=== PATIENT | female | born 1960 | race Asian ===

== ENCOUNTER → 2018-01-13 17:14 | Outpatient (CLI) | payer OTHER, SELFPAY ==
--- NOTE | 2018-01-13 17:26 | DI.RAD.S_ITS ---
PROCEDURE: XR CHEST 2V INDICATIONS: left apical mass TECHNIQUE: 2 views of the chest were acquired. COMPARISON: [facility], , CHEST 2 VIEW, 08/24/2011, 16:45. FINDINGS: Surgical changes and devices: None. Lungs and pleura: No pleural effusions or pneumothorax. Chronic appearing scarring and pleural thickening in left apex is again seen. No focal infiltrate. Mediastinum: Mediastinal contours are normal. Heart size is normal. Bones and chest wall: No suspicious bony abnormalities. Soft tissues appear unremarkable. IMPRESSION: No acute cardiopulmonary bulge. No significant changes from previous study. Stable-appearing chronic changes in left apex and medial aspect of left upper lobe. Dictated by: Carlos Syed M.D. on 01/14/2018 at 11:05 Approved by: Carlos Syed M.D. on 01/14/2018 at 11:10
== END ==
PROVIDERS: PCP Family Medicine; Visit Provider Family Medicine
DX: R91.8 Other nonspecific abnormal finding of lung field (principal)
CPT/HCPCS: 71046

== ENCOUNTER → 2018-01-18 17:09 | Outpatient (CLI) | payer OTHER, SELFPAY ==
[2018-01-18 17:34] LABS: Add Manual Diff / Slide Review NO; Basophils Percent Auto 0.8 % (0-2); Eosinophils Percent Auto 1.7 % (2-4); Hematocrit 41.2 % (36-46); Hemoglobin 13.7 g/dL (12.0-16.0); Lymphocytes Percent Auto 36.1 % (25-40); Mean Corpuscular HGB Conc 33.3 % (30-36); Mean Corpuscular Volume 93.3 fL (80-100); Monocytes Percent Auto 8.7 % (3-14); Neutrophils Absolute Auto 3300 /uL (3000-5900); Neutrophils Percent Auto 52.7 % (50-75); Platelet Count 301 X10^3/uL (150-400); Red Blood Cell Count 4.42 X10^6/uL (4.0-5.2); Red Cell Distribution Width 12.1 % (11.6-14.8); White Blood Cell Count 6.2 X10^3/uL (4.5-11.0)
[2018-01-18 18:02] LABS: Alanine Aminotransferase 25 IU/L (9-52); Albumin 4.6 g/dL (3.5-5.0); Albumin Globulin Ratio 1.4 (1.0-2.8); Alkaline Phosphatase 37 U/L (38-126); Aspartate Aminotransferase 21 IU/L (14-36); Bilirubin Total 0.5 mg/dL (0.2-1.3); Blood Urea Nitrogen 18 mg/dL (7-17); Calcium 8.9 mg/dL (8.4-10.2); Carbon Dioxide 32 mmol/L (22-32); Chloride 103 mmol/L (98-107); Estimated Glomerular Filt Rate > 60.0 mL/min (>60); Globulin 3.2 g/dL (1.7-4.1); Glucose 99 mg/dL (80-110); HEMOLYSIS 18 (0-50); Sodium 145 mmol/L (137-145); Total Protein 7.8 g/dL (6.3-8.2)
[2018-01-18 18:32] LABS: Thyroid Stimulating Hormone 2.46 uIU/mL (0.47-4.68)
== END ==
PROVIDERS: PCP Family Medicine; Visit Provider Family Medicine
DX: E87.2 Acidosis (principal)
CPT/HCPCS: 36415; 80053; 84443; 85025

== ENCOUNTER → 2018-04-13 08:47 | Outpatient (CLI) | payer OTHER, SELFPAY ==
[2018-04-13 09:59] LABS: Alanine Aminotransferase 31 IU/L (9-52); Albumin 4.6 g/dL (3.5-5.0); Albumin Globulin Ratio 1.4 (1.0-2.8); Alkaline Phosphatase 44 U/L (38-126); Aspartate Aminotransferase 21 IU/L (14-36); BUN Creatinine Ratio 31.7 (6-22); Bilirubin Total 0.5 mg/dL (0.2-1.3); Blood Urea Nitrogen 19 mg/dL (7-17); Calcium 9.4 mg/dL (8.4-10.2); Carbon Dioxide 30 mmol/L (22-32); Chloride 104 mmol/L (98-107); Cholesterol 231 mg/dL (140-199); Estimated Glomerular Filt Rate > 60.0 mL/min (>60); Globulin 3.2 g/dL (1.7-4.1); Glucose 103 mg/dL (80-110); HDL Cholesterol 65 mg/dL (40-60); HEMOLYSIS < 15 (0-50); LDL Cholesterol Calculated 146 mg/dL (<100); Potassium 4.5 mmol/L (3.4-5.1); Sodium 145 mmol/L (137-145); Total Protein 7.8 g/dL (6.3-8.2); Triglycerides 100 mg/dL (35-150)
== END ==
PROVIDERS: PCP Family Medicine; Visit Provider Family Medicine
DX: E78.2 Mixed hyperlipidemia (principal); N28.9 Disorder of kidney and ureter, unspecified
CPT/HCPCS: 36415; 80053; 80061

== ENCOUNTER → 2018-05-03 14:49 | Outpatient (CLI) | payer OTHER, SELFPAY ==
--- NOTE | 2018-05-03 14:52 | DI.MG.S_ITS ---
BILATERAL DIGITAL SCREENING MAMMOGRAM 3D/2D WITH CAD: 05/03/2018 CLINICAL: Routine screening. Comparison is made to exams dated: 03/31/2017 mammogram, 05/01/2015 mammogram, and 04/10/2015 mammogram - [facility]. The tissue of both breasts is heterogeneously dense. This may lower the sensitivity of mammography. Current study was also evaluated with a Computer Aided Detection (CAD) system. No significant masses, calcifications, or other findings are seen in either breast. There has been no significant interval change. IMPRESSION: NEGATIVE There is no mammographic evidence of malignancy. A 1 year screening mammogram is recommended. This exam was interpreted at Station ID: [id number]. NOTE: For mammograms, a report in lay terms will be sent to the patient. Approximately 15% of breast malignancies will not be visualized mammographically. In the management of a palpable breast mass, a negative mammogram must not discourage biopsy of a clinically suspicious lesion. Electronically Signed By: Layla devries/vic:05/03/2018 15:24:26 letter sent: Normal Exam ACR BI-RADS Category 1: Negative [id number]
== END ==
PROVIDERS: PCP Family Medicine; Visit Provider Family Medicine
DX: Z12.31 Encounter for screening mammogram for malignant neoplasm of breast (principal)
CPT/HCPCS: 77063; 77067

== ENCOUNTER → 2019-02-07 08:27 | Outpatient (CLI) | payer OTHER, SELFPAY ==
[2019-02-07 10:08] LABS: Add Manual Diff / Slide Review NO; Basophils Absolute Auto 0 /uL (0-100); Basophils Percent Auto 0.9 % (0-2); Eosinophils Absolute Auto 100 /uL (0-450); Eosinophils Percent Auto 2.1 % (2-4); Hemoglobin 14.4 g/dL (12.0-16.0); Lymphocytes Absolute Auto 2100 /uL (1100-4500); Mean Corpuscular HGB Conc 33.6 % (30-36); Mean Corpuscular Hemoglobin 30.9 PG (26-34); Mean Corpuscular Volume 91.9 fL (80-100); Monocytes Absolute Auto 400 /uL (0-900); Monocytes Percent Auto 8.5 % (3-14); Neutrophils Absolute Auto 1600 /uL (1500-7000); Neutrophils Percent Auto 38.5 % (50-75); Platelet Count 262 X10^3/uL (150-400); Red Blood Cell Count 4.67 X10^6/uL (4.0-5.2); Red Cell Distribution Width 12.4 % (11.6-14.8); White Blood Cell Count 4.3 X10^3/uL (4.5-11.0)
[2019-02-07 10:47] LABS: Alanine Aminotransferase 23 IU/L (9-52); Albumin 4.5 g/dL (3.5-5.0); Albumin Globulin Ratio 1.4 (1.0-2.8); Alkaline Phosphatase 45 U/L (38-126); Aspartate Aminotransferase 21 IU/L (14-36); Bilirubin Total 0.7 mg/dL (0.2-1.3); Blood Urea Nitrogen 13 mg/dL (7-17); Calcium 9.3 mg/dL (8.4-10.2); Carbon Dioxide 26 mmol/L (22-32); Chloride 104 mmol/L (98-107); Cholesterol 234 mg/dL (140-199); Estimated Glomerular Filt Rate > 60.0 mL/min (>60); Globulin 3.2 g/dL (1.7-4.1); Glucose 97 mg/dL (80-110); HDL Cholesterol 62 mg/dL (40-60); HEMOLYSIS < 15 (0-50); LDL Cholesterol Calculated 150 mg/dL (<100); Potassium 4.5 mmol/L (3.4-5.1); Sodium 142 mmol/L (137-145); Total Protein 7.7 g/dL (6.3-8.2); Triglycerides 108 mg/dL (35-150)
== END ==
PROVIDERS: PCP Family Medicine; Visit Provider Family Medicine
DX: E78.2 Mixed hyperlipidemia (principal); Z79.899 Other long term (current) drug therapy; Z78.9 Other specified health status
CPT/HCPCS: 36415; 80053; 80061; 85025; 86787

== ENCOUNTER → 2019-06-30 15:46 | Outpatient (CLI) | payer OTHER, SELFPAY ==
--- NOTE | 2019-06-30 15:48 | DI.RAD.S_ITS ---
PROCEDURE: XR CHEST 2V INDICATIONS: persistent cough TECHNIQUE: 2 views of the chest were acquired. COMPARISON: [facility], , CHEST 2 VIEW, 08/24/2011, 16:45. [facility], , XR CHEST 2V, 01/13/2018, 17:21. FINDINGS: Surgical changes and devices: A left apical capping. There is left-sided volume loss as before. Scattered scarring and atelectasis without new focal consolidation. Lungs and pleura: Lungs are clear. No pleural effusions or pneumothorax. Mediastinum: Mediastinal contours are normal. Heart size is normal. Bones and chest wall: No suspicious bony abnormalities. Soft tissues appear unremarkable. IMPRESSION: No interval change or acute disease. Dictated by: Giovani Charles M.D. on 06/30/2019 at 16:56 Approved by: Giovani Charles M.D. on 06/30/2019 at 16:57
== END ==
PROVIDERS: PCP Family Medicine; Referring Provider Family Medicine; Visit Provider Family Medicine
DX: R05 Cough (principal)
CPT/HCPCS: 71046

== ENCOUNTER 2020-02-16 11:24 | Emergency (ER) | payer OTHER, SELFPAY ==
[2020-02-16] VITALS (12 sets, daily range): BP systolic 106–145; BP diastolic 58–85; PULSE 80–93; RESP 16; TEMP 36.1; O2SAT 51–99; BMI 25.7
--- NOTE | 2020-02-16 11:43 | DI.CT.S_ITS ---
PROCEDURE: CT ABDOMEN PELVIS W CON INDICATIONS: Right lower quadrant abdominal pain TECHNIQUE: After the administration of intravenous contrast, 5 mm thick sections acquired from the diaphragm to the symphysis. 5 mm coronal and sagittal reformats were acquired. For radiation dose reduction, the following was used: automated exposure control, adjustment of mA and/or kV according to patient size. COMPARISON: None. FINDINGS: Image quality: Excellent. ABDOMEN: Lung bases: Lung bases are clear. Heart size is normal. Solid organs: Liver is normal in size and enhancement. Gallbladder is unremarkable. Biliary system is non dilated. Pancreas enhances normally. Spleen is normal in size and enhancement. No adrenal nodules. Kidneys demonstrate normal size and enhancement, without hydronephrosis. Peritoneum and bowel: There is circumferential wall thickening and pericolonic inflammation surrounding the ascending colon as well as a moderate segment of distal ileum. There is associated distention of fluid filled bowel involving the distal ileum measuring up to 2.6 cm in diameter. Mild fecalization suggests delayed transit. No transition point is visualized. The appendix is prominent measuring 7 mm in diameter. There is mild periappendiceal inflammatory stranding and tiny appendicolith. No free air. There is scattered reactive free fluid in the abdomen. Nodes and vessels: No retroperitoneal or mesenteric adenopathy by size criteria. Aorta and inferior vena cava are normal in size. Miscellaneous: Small fat containing umbilical hernia without acute inflammation. No ventral hernias. PELVIS: Genitourinary: Bladder wall thickness is normal. Prominent nabothian cyst is visualized. Miscellaneous: No inguinal hernias or adenopathy. Bones: No suspicious bony lesions. No acute vertebral body compression fractures. IMPRESSION: 1. Mild wall thickening and surrounding inflammatory changes involving a long segment of distal ileum and the ascending colon. There is mild distention of the affected segments with fecalization suggesting delayed transit. No evidence for high-grade obstruction identified. Findings are nonspecific and may represent sequela of inflammatory/infectious colitis/enteritis versus early partial bowel obstruction. Additionally, the appendix is mildly dilated with associated periappendiceal stranding. Acute appendicitis may have a similar appearance although this may represent reactive changes secondary to adjacent inflammation. Recommend continued clinical and imaging surveillance and possible surgical consultation as indicated. 2. Other nonacute findings as above. Dictated by: Heath Cavazos M.D. on 02/16/2020 at 12:41 Approved by: Heath Cavazos M.D. on 02/16/2020 at 12:54
--- NOTE | 2020-02-16 11:47 | ED.ABDPAIN ---
HPI - Abdominal Pain <Azra Cao, PER DIEM NURSE-BC - Last Filed: 02/16/20 17:55> General Chief Complaint: Abdominal Pain Stated Complaint: stomach pain Time Seen by Provider: 02/16/20 11:33 Source: patient Mode of arrival: Ambulatory Limitations: no limitations History of Present Illness HPI narrative: The patient is a 60-year-old female nonsmoker with history of high cholesterol and low back pain who presents with a chief complaint of abdominal pain. She states that she woke up this morning about 4:00 a.m. with cramping all over her stomach. She does have history of a hysterectomy, no other abdominal surgery. She took Imodium to try to feel better and it did not work. She states her stomach hurts in the center and down to her right lower quadrant. She denies any dysuria urgency or frequency. She denies any fevers muscle aches or chills. She states that it feels very crampy and shooting. She has never had pain like this in the past. She does note that she ate some sushi yesterday, but that is not abnormal for her. She denies any chest pain, shortness of breath, cough or congestion. Related Data Home Medications Medication Instructions Recorded Confirmed [NITROSPRAY] #0 12/12/10 07/04/19 Previous Rx's Medication Instructions Recorded hydrocodone 5 mg-acetaminophen 325 1 tab PO Q6H PRN #60 tab 02/14/19 mg tablet tolterodine 4 mg capsule,extended 4 mg PO QDAY #90 cap 02/14/19 release 24 hr albuterol sulfate 90 mcg/actuation 2 puff INHALATION Q4HP PRN #1 inh 07/04/19 aerosol inhaler benzonatate 100 mg capsule 100 mg PO Q6H PRN #30 cap 07/04/19 guaifenesin 1,200 mg tablet, 1,200 mg PO .QDAY #30 tab 07/06/19 extended release 12 hr atorvastatin 40 mg tablet 40 mg PO DAILY #90 tab 01/30/20 clonazepam 0.5 mg tablet 0.5 mg PO BID #180 tab 01/30/20 omeprazole 20 mg capsule,delayed 20 mg PO DAILY #90 tab 01/30/20 release pseudoephedrine HCl 30 mg tablet 30 mg PO TID PRN #270 tab 02/08/20 tramadol 50 mg tablet 50 mg PO Q6H PRN #30 tab 02/08/20 ciprofloxacin HCl [Cipro] 500 mg PO BID #14 tab 02/16/20 hydrocodone-acetaminophen 1 tab PO Q4-6H PRN #10 tab 02/16/20 metronidazole 500 mg PO Q8H 7 Days #21 tab 02/16/20 ondansetron 4 mg PO Q6H PRN #20 tab 02/16/20 Allergies Allergy/AdvReac Type Severity Reaction Status Date / Time No Known Drug Allergies Allergy Verified 02/16/20 11:33 Review of Systems <KILO Cool - Last Filed: 02/16/20 17:55> Review of Systems Narrative: GENERAL: Denies chills, fatigue, malaise, fever, sweats. HEENT: Denies sinus pain, ear pain, sore throat, difficulty swallowing, dizziness. RESPIRATORY: Denies dyspnea, cough, wheezing, hemoptysis, sputum. CARDIOVASCULAR: Denies chest pain, palpitations, orthopnea, edema, GASTROINTESTINAL: See HPI : Denies dysuria, frequency, incontinence, hematuria, urinary retention. MUSCULOSKELETAL: denies weakness, joint pain, or bony pain SKIN: Denies rash, skin lesions, or other NEUROLOGIC: Denies weakness, headache, numbness, change in speech, confusion, seizures, incoordination. PSYCHIATRIC: No concerning psychosocial issues. 12 point review of systems is negative except for those stated above Patient History <KILO Cool - Last Filed: 02/16/20 17:55> Medical History (Updated 02/16/20 @ 15:49 by KILO Cool) Chest pain (Chronic) Gastric ulcer (Chronic 02/2009) Hyperlipidemia (Chronic) Tuberculosis (Resolved) Surgical History (Updated 01/11/18 @ 14:46 by Bea Brower) Anesthesia (Resolved) History of bladder suspension procedure (Resolved 1999) S/P total abdominal hysterectomy and bilateral salpingo-oophorectomy (Resolved 1999) Family History (Updated 01/11/18 @ 14:49 by Bea Brower) Father Hypertension Mother Heart disease Hypertension CVA (cerebral vascular accident) Cataract Glaucoma Family/Other CVA (cerebral vascular accident) Social History Smoking Status: Never smoker Smoking Status: Never smoker Exam <KILO Cool - Last Filed: 02/16/20 17:55> Narrative Exam Narrative: GENERAL: This is a well-nourished, well-developed patient, in no acute distress HEAD: Atraumatic. Normocephalic. No temporal or scalp tenderness. EYES: Pupils equal round and reactive. Extraocular motions intact. No scleral icterus. No injection or drainage. ENT: Nose without bleeding, purulent drainage or septal hematoma. Throat without erythema, tonsillar hypertrophy or exudate. Uvula midline. Airway patent. NECK: Trachea midline. No JVD or lymphadenopathy. Supple, nontender, no meningeal signs. CARDIOVASCULAR: Regular rate and rhythm RESPIRATORY: Clear to auscultation. Breath sounds equal bilaterally. No wheezes, rales, or rhonchi. No cough. No increased respiratory effort. No accessory muscle use GASTROINTESTINAL: Abdomen soft, active bowel sounds all 4 quadrants, nondistended. No hepato-splenomegaly, or palpable masses. Diffusely tender to palpation, slight guarding noted right lower quadrant, no peritoneal signs. EXTREMITIES: No clubbing, cyanosis, or edema. No joint tenderness, effusion, or edema noted. BACK: Nontender without deformity or crepitance. No flank tenderness. NEURO: AOx3. SKIN: No rash or erythema on visible skin Initial Vital Signs Initial Vital Signs: Vital Signs Temperature 96.9 F L 02/16/20 11:33 Respiratory Rate 16 02/16/20 11:33 Blood Pressure 132/85 02/16/20 11:33 <Qian Kaur MD - Last Filed: 02/16/20 18:11> Initial Vital Signs Initial Vital Signs: Vital Signs Temperature 96.9 F L 02/16/20 11:33 Respiratory Rate 16 02/16/20 11:33 Blood Pressure 132/85 02/16/20 11:33 Course <DANE Cool-BC - Last Filed: 02/16/20 17:55> Orders Ordered: ED Orders 02/16/20 11:30 Amylase Stat Complete Blood Count AUTO DIFF Stat Comprehensive Metabolic Panel Stat Lactate (Lactic Acid) Stat Lipase Stat 02/16/20 11:42 EKG-12 Lead Stat 02/16/20 11:43 CT abdomen pelvis w con Stat 02/16/20 11:55 Urine Microscopic Stat Discontinued Medications Ciprofloxacin (Cipro) 500 mg PO NOW ONE Stop: 02/16/20 15:13 Last Admin: 02/16/20 15:25 Dose: 500 mg Documented by: EUGENIE Sodium Chloride (Normal Saline 0.9%) 1,000 mls @ 1,000 mls/hr IV BOLUS ONE Stop: 02/16/20 12:41 Last Infusion: 02/16/20 13:45 Dose: 0 mls/hr Documented by: Admin: 02/16/20 11:57 Dose: 1,000 mls/hr Documented by: EUGENIE Ceftriaxone Sodium/Dextrose (Rocephin) 2 gm in 50 mls @ 100 mls/hr IV NOW ONE Stop: 02/16/20 14:34 Last Infusion: 02/16/20 14:43 Dose: 0 mls/hr Documented by: Admin: 02/16/20 14:17 Dose: 100 mls/hr Documented by: EUGENIE Ketorolac Tromethamine (Toradol) 30 mg IV NOW ONE Stop: 02/16/20 14:06 Last Admin: 02/16/20 14:16 Dose: 30 mg Documented by: EUGENIE Metronidazole (Metronidazole) 500 mg PO NOW ONE Stop: 02/16/20 15:13 Last Admin: 02/16/20 15:25 Dose: 500 mg Documented by: EUGENIE Ondansetron HCl (Zofran) 4 mg IV NOW ONE Stop: 02/16/20 11:43 Last Admin: 02/16/20 11:57 Dose: 4 mg Documented by: EUGENIE Vital Signs Vital signs: Vital Signs - 8 hr 02/16/20 11:33 02/16/20 11:56 02/16/20 12:00 Temperature 96.9 F L Pulse Rate 88 Respiratory Rate 16 Blood Pressure 132/85 145/75 H 139/69 Pulse Oximetry 51 L 96 02/16/20 12:10 02/16/20 12:30 02/16/20 12:52 Temperature Pulse Rate 87 93 H 85 Respiratory Rate Blood Pressure 132/66 123/60 Pulse Oximetry 98 98 99 02/16/20 13:00 02/16/20 13:30 02/16/20 14:00 Temperature Pulse Rate 83 93 H 81 Respiratory Rate Blood Pressure 123/61 Pulse Oximetry 98 90 L 98 02/16/20 14:42 02/16/20 14:43 02/16/20 15:00 Temperature Pulse Rate 80 82 Respiratory Rate Blood Pressure 108/58 L 106/63 Pulse Oximetry 99 99 99 <Qian Kaur MD - Last Filed: 02/16/20 18:11> Orders Ordered: ED Orders 02/16/20 11:30 Amylase Stat Complete Blood Count AUTO DIFF Stat Comprehensive Metabolic Panel Stat Lactate (Lactic Acid) Stat Lipase Stat 02/16/20 11:42 EKG-12 Lead Stat 02/16/20 11:43 CT abdomen pelvis w con Stat 02/16/20 11:55 Urine Microscopic Stat Discontinued Medications Ciprofloxacin (Cipro) 500 mg PO NOW ONE Stop: 02/16/20 15:13 Last Admin: 02/16/20 15:25 Dose: 500 mg Documented by: EUGENIE Sodium Chloride (Normal Saline 0.9%) 1,000 mls @ 1,000 mls/hr IV BOLUS ONE Stop: 02/16/20 12:41 Last Infusion: 02/16/20 13:45 Dose: 0 mls/hr Documented by: Admin: 02/16/20 11:57 Dose: 1,000 mls/hr Documented by: EUGENIE Ceftriaxone Sodium/Dextrose (Rocephin) 2 gm in 50 mls @ 100 mls/hr IV NOW ONE Stop: 02/16/20 14:34 Last Infusion: 02/16/20 14:43 Dose: 0 mls/hr Documented by: Admin: 02/16/20 14:17 Dose: 100 mls/hr Documented by: EUGENIE Ketorolac Tromethamine (Toradol) 30 mg IV NOW ONE Stop: 02/16/20 14:06 Last Admin: 02/16/20 14:16 Dose: 30 mg Documented by: EUGENIE Metronidazole (Metronidazole) 500 mg PO NOW ONE Stop: 02/16/20 15:13 Last Admin: 02/16/20 15:25 Dose: 500 mg Documented by: EUGENIE Ondansetron HCl (Zofran) 4 mg IV NOW ONE Stop: 02/16/20 11:43 Last Admin: 02/16/20 11:57 Dose: 4 mg Documented by: EUGENIE Vital Signs Vital signs: Vital Signs - 8 hr 02/16/20 11:33 02/16/20 11:56 02/16/20 12:00 Temperature 96.9 F L Pulse Rate 88 Respiratory Rate 16 Blood Pressure 132/85 145/75 H 139/69 Pulse Oximetry 51 L 96 02/16/20 12:10 02/16/20 12:30 02/16/20 12:52 Temperature Pulse Rate 87 93 H 85 Respiratory Rate Blood Pressure 132/66 123/60 Pulse Oximetry 98 98 99 02/16/20 13:00 02/16/20 13:30 02/16/20 14:00 Temperature Pulse Rate 83 93 H 81 Respiratory Rate Blood Pressure 123/61 Pulse Oximetry 98 90 L 98 02/16/20 14:42 02/16/20 14:43 02/16/20 15:00 Temperature Pulse Rate 80 82 Respiratory Rate Blood Pressure 108/58 L 106/63 Pulse Oximetry 99 99 99 MDM - Abdominal Pain <DANE Cool-BC - Last Filed: 02/16/20 17:55> Differential Diagnosis Differential diagnosis: Likely abdominal pain, acute appendicitis, calculus of kidney, constipation and diverticulitis Lab Data Attestation: I reviewed the patient's lab results. Result diagrams: 02/16/20 11:30 02/16/20 11:30 Labs: Lab Results 02/16/20 02/16/20 02/16/20 Range/Units 11:30 11:30 11:30 WBC 11.3 H (4.5-11.0) X10^3/uL RBC 4.85 (4.0-5.2) X10^6/uL Hgb 14.9 (12.0-16.0) g/dL Hct 45.3 (36-46) % MCV 93.3 (80-100) fL MCH 30.6 (26-34) PG MCHC 32.8 (30-36) % RDW 12.5 (11.6-14.8) % Plt Count 266 (150-400) X10^3/uL Neut % (Auto) 85.3 H (50-75) % Lymph % (Auto) 11.3 L (25-40) % Towns % (Auto) 2.9 L (3-14) % Eos % (Auto) 0.1 L (2-4) % Baso % (Auto) 0.4 (0-2) % Neut # (Auto) 9700 H (5805-6559) /uL Lymph # (Auto) 1300 (3797-4373) /uL Towns # (Auto) 300 (0-900) /uL Eos # (Auto) 0 (0-450) /uL Baso # (Auto) 0 (0-100) /uL Sodium 142 (137-145) mmol/L Potassium 4.0 (3.4-5.1) mmol/L Chloride 102 (98-107) mmol/L Carbon Dioxide 29 (22-32) mmol/L BUN 16 (7-17) mg/dL Creatinine 0.51 L (0.52-1.04) mg/dL Estimated GFR > 60.0 (>60) mL/min BUN/Creatinine Ratio 31.4 H (6-22) Glucose 135 H (80-110) mg/dL Lactate 0.9 (0.7-2.1) mmol/L Calcium 9.2 (8.4-10.2) mg/dL Total Bilirubin 0.7 (0.2-1.3) mg/dL AST 27 (14-36) IU/L ALT 27 (<35) IU/L Alkaline Phosphatase 45 (38-126) U/L Total Protein 8.7 H (6.3-8.2) g/dL Albumin 4.8 (3.5-5.0) g/dL Globulin 3.9 (1.7-4.1) g/dL Albumin/Globulin Ratio 1.2 (1.0-2.8) Amylase 83 (30-110) U/L Lipase 135 (23-300) U/L Urine RBC (0-5/HPF) Urine WBC (0-5/HPF) Ur Squamous Epith Cells (0-5/HPF) Urine Bacteria (None) Urine Mucus (Negative) Ur Culture Indicated? 02/16/20 Range/Units 11:55 WBC (4.5-11.0) X10^3/uL RBC (4.0-5.2) X10^6/uL Hgb (12.0-16.0) g/dL Hct (36-46) % MCV (80-100) fL MCH (26-34) PG MCHC (30-36) % RDW (11.6-14.8) % Plt Count (150-400) X10^3/uL Neut % (Auto) (50-75) % Lymph % (Auto) (25-40) % Towns % (Auto) (3-14) % Eos % (Auto) (2-4) % Baso % (Auto) (0-2) % Neut # (Auto) (5210-1457) /uL Lymph # (Auto) (3128-0414) /uL Towns # (Auto) (0-900) /uL Eos # (Auto) (0-450) /uL Baso # (Auto) (0-100) /uL Sodium (137-145) mmol/L Potassium (3.4-5.1) mmol/L Chloride (98-107) mmol/L Carbon Dioxide (22-32) mmol/L BUN (7-17) mg/dL Creatinine (0.52-1.04) mg/dL Estimated GFR (>60) mL/min BUN/Creatinine Ratio (6-22) Glucose (80-110) mg/dL Lactate (0.7-2.1) mmol/L Calcium (8.4-10.2) mg/dL Total Bilirubin (0.2-1.3) mg/dL AST (14-36) IU/L ALT (<35) IU/L Alkaline Phosphatase (38-126) U/L Total Protein (6.3-8.2) g/dL Albumin (3.5-5.0) g/dL Globulin (1.7-4.1) g/dL Albumin/Globulin Ratio (1.0-2.8) Amylase (30-110) U/L Lipase (23-300) U/L Urine RBC 0-1/hpf (0-5/HPF) Urine WBC 1-5/hpf (0-5/HPF) Ur Squamous Epith Cells 1-5 /hpf (0-5/HPF) Urine Bacteria Few (2-10) H (None) Urine Mucus 3+ H (Negative) Ur Culture Indicated? Cult not indicated Point of care testing: Urine Dip Bedside Urine Glucose Negative Bedside Urine Bilirubin - Negative Bedside Urine Ketone +/- 5 Urine Specific [place] 1.025 Bedside Urine Occult Blood +/- Bedside Urine pH 6.0 Bedside Urine Protein - Negative Bedside Urine Urobilinogen - Negative Bedside Urine Nitrite - Negative Bedside Urine Leukocytes - Negative Esterase Imaging Data CT scan - abdomen/pelvis: Radiologist's Impression: [facility] [place] [id number] [address] Scan Report Signed Patient: Rosario Brown EMR#: [id number] : 8Acct:[id number] Age/Sex: 60 / FDate of Service: 02/16/20 Loc: ED Accession Number: [id number] Procedure: CT abdomen pelvis w con Ordering Provider: Azra CaoBC PROCEDURE: CT ABDOMEN PELVIS W CON INDICATIONS: Right lower quadrant abdominal pain TECHNIQUE: After the administration of intravenous contrast, 5 mm thick sections acquired from the diaphragm to the symphysis. 5 mm coronal and sagittal reformats were acquired. For radiation dose reduction, the following was used: automated exposure control, adjustment of mA and/or kV according to patient size. COMPARISON: None. FINDINGS: Image quality: Excellent. ABDOMEN: Lung bases: Lung bases are clear. Heart size is normal. Solid organs: Liver is normal in size and enhancement. Gallbladder is unremarkable. Biliary system is non dilated. Pancreas enhances normally. Spleen is normal in size and enhancement. No adrenal nodules. Kidneys demonstrate normal size and enhancement, without hydronephrosis. Peritoneum and bowel: There is circumferential wall thickening and pericolonic inflammation surrounding the ascending colon as well as a moderate segment of distal ileum. There is associated distention of fluid filled bowel involving the distal ileum measuring up to 2.6 cm in diameter. Mild fecalization suggests delayed transit. No transition point is visualized. The appendix is prominent measuring 7 mm in diameter. There is mild periappendiceal inflammatory stranding and tiny appendicolith. No free air. There is scattered reactive free fluid in the abdomen. Nodes and vessels: No retroperitoneal or mesenteric adenopathy by size criteria. Aorta and inferior vena cava are normal in size. Miscellaneous: Small fat containing umbilical hernia without acute inflammation. No ventral hernias. PELVIS: Genitourinary: Bladder wall thickness is normal. Prominent nabothian cyst is visualized. Miscellaneous: No inguinal hernias or adenopathy. Bones: No suspicious bony lesions. No acute vertebral body compression fractures. IMPRESSION: 1. Mild wall thickening and surrounding inflammatory changes involving a long segment of distal ileum and the ascending colon. There is mild distention of the affected segments with fecalization suggesting delayed transit. No evidence for high-grade obstruction identified. Findings are nonspecific and may represent sequela of inflammatory/infectious colitis/enteritis versus early partial bowel obstruction. Additionally, the appendix is mildly dilated with associated periappendiceal stranding. Acute appendicitis may have a similar appearance although this may represent reactive changes secondary to adjacent inflammation. Recommend continued clinical and imaging surveillance and possible surgical consultation as indicated. 2. Other nonacute findings as above. Dictated by: Heath Cavazos M.D. on 02/16/2020 at 12:41 Approved by: Heath Cavazos M.D. on 02/16/2020 at 12:54 ECG Data Attestation: I personally reviewed and interpreted this ECG as follows: Interpretation: Sinus rhythm. Ventricular rate 79. P.r. interval 144. QRS [address] Kaur MDM Narrative Medical decision making narrative: The patient is a 60-year-old female who presents with a chief complaint of abdominal pain since 3 or 4:00 a.m. this morning. She appears rather well in the emergency department, is afebrile and hemodynamically stable. However she does have guarding on exam, so CT abdomen pelvis was obtained. Slight leukocytosis noted. Her CT is very nonspecific, showing mild wall thickening and inflammatory changes around the distal ileum and ascending colon with mild distention. Early obstruction is suggested, though the patient has no vomiting and has had bowel movements today. She has also been able to keep down p.o. today, so I do not think bowel obstruction is likely at this time. Acute appendicitis may have similar appearance though this may recur present reactive secondary changes. Given the CT, I spoke with Dr. Grande regarding the patient and her CT. He states that this is likely to be colitis rather than appendicitis. Encouraged use of Rocephin as well as oral antibiotics. The patient was given 2 g IV Rocephin and p.o. Flagyl and Cipro. Discussed the possibility of tendon injuries with Cipro, discussed not drinking alcohol Flagyl. Encouraged straining with a liquid based diet, avoiding high fatty food spicy foods etcetera. Encouraged follow-up with primary care provider for re-evaluation in the next 48-72 hours is very strict return precautions to the emergency department including inability keep down fluids, severe abdominal who is fever any acute concerns. Patient has no questions or concerns upon discharge and states understanding return precautions as well as follow-up care. <Qian Kaur MD - Last Filed: 02/16/20 18:11> Lab Data Labs: Lab Results 02/16/20 02/16/20 02/16/20 Range/Units 11:30 11:30 11:30 WBC 11.3 H (4.5-11.0) X10^3/uL RBC 4.85 (4.0-5.2) X10^6/uL Hgb 14.9 (12.0-16.0) g/dL Hct 45.3 (36-46) % MCV 93.3 (80-100) fL MCH 30.6 (26-34) PG MCHC 32.8 (30-36) % RDW 12.5 (11.6-14.8) % Plt Count 266 (150-400) X10^3/uL Neut % (Auto) 85.3 H (50-75) % Lymph % (Auto) 11.3 L (25-40) % Towns % (Auto) 2.9 L (3-14) % Eos % (Auto) 0.1 L (2-4) % Baso % (Auto) 0.4 (0-2) % Neut # (Auto) 9700 H (6663-5857) /uL Lymph # (Auto) 1300 (7425-2165) /uL Towns # (Auto) 300 (0-900) /uL Eos # (Auto) 0 (0-450) /uL Baso # (Auto) 0 (0-100) /uL Sodium 142 (137-145) mmol/L Potassium 4.0 (3.4-5.1) mmol/L Chloride 102 (98-107) mmol/L Carbon Dioxide 29 (22-32) mmol/L BUN 16 (7-17) mg/dL Creatinine 0.51 L (0.52-1.04) mg/dL Estimated GFR > 60.0 (>60) mL/min BUN/Creatinine Ratio 31.4 H (6-22) Glucose 135 H (80-110) mg/dL Lactate 0.9 (0.7-2.1) mmol/L Calcium 9.2 (8.4-10.2) mg/dL Total Bilirubin 0.7 (0.2-1.3) mg/dL AST 27 (14-36) IU/L ALT 27 (<35) IU/L Alkaline Phosphatase 45 (38-126) U/L Total Protein 8.7 H (6.3-8.2) g/dL Albumin 4.8 (3.5-5.0) g/dL Globulin 3.9 (1.7-4.1) g/dL Albumin/Globulin Ratio 1.2 (1.0-2.8) Amylase 83 (30-110) U/L Lipase 135 (23-300) U/L Urine RBC (0-5/HPF) Urine WBC (0-5/HPF) Ur Squamous Epith Cells (0-5/HPF) Urine Bacteria (None) Urine Mucus (Negative) Ur Culture Indicated? 02/16/20 Range/Units 11:55 WBC (4.5-11.0) X10^3/uL RBC (4.0-5.2) X10^6/uL Hgb (12.0-16.0) g/dL Hct (36-46) % MCV (80-100) fL MCH (26-34) PG MCHC (30-36) % RDW (11.6-14.8) % Plt Count (150-400) X10^3/uL Neut % (Auto) (50-75) % Lymph % (Auto) (25-40) % Towns % (Auto) (3-14) % Eos % (Auto) (2-4) % Baso % (Auto) (0-2) % Neut # (Auto) (4041-8933) /uL Lymph # (Auto) (7342-6053) /uL Towns # (Auto) (0-900) /uL Eos # (Auto) (0-450) /uL Baso # (Auto) (0-100) /uL Sodium (137-145) mmol/L Potassium (3.4-5.1) mmol/L Chloride (98-107) mmol/L Carbon Dioxide (22-32) mmol/L BUN (7-17) mg/dL Creatinine (0.52-1.04) mg/dL Estimated GFR (>60) mL/min BUN/Creatinine Ratio (6-22) Glucose (80-110) mg/dL Lactate (0.7-2.1) mmol/L Calcium (8.4-10.2) mg/dL Total Bilirubin (0.2-1.3) mg/dL AST (14-36) IU/L ALT (<35) IU/L Alkaline Phosphatase (38-126) U/L Total Protein (6.3-8.2) g/dL Albumin (3.5-5.0) g/dL Globulin (1.7-4.1) g/dL Albumin/Globulin Ratio (1.0-2.8) Amylase (30-110) U/L Lipase (23-300) U/L Urine RBC 0-1/hpf (0-5/HPF) Urine WBC 1-5/hpf (0-5/HPF) Ur Squamous Epith Cells 1-5 /hpf (0-5/HPF) Urine Bacteria Few (2-10) H (None) Urine Mucus 3+ H (Negative) Ur Culture Indicated? Cult not indicated Point of care testing: Urine Dip Bedside Urine Glucose Negative Bedside Urine Bilirubin - Negative Bedside Urine Ketone +/- 5 Urine Specific [place] 1.025 Bedside Urine Occult Blood +/- Bedside Urine pH 6.0 Bedside Urine Protein - Negative Bedside Urine Urobilinogen - Negative Bedside Urine Nitrite - Negative Bedside Urine Leukocytes - Negative Esterase Discharge Plan Departure Patient Disposition: Home Clinical Impression: Colitis Abdominal pain Qualifiers: Abdominal location: generalized Qualified Code(s): R10.84 - Generalized abdominal pain Discharge Date/Time: 02/16/20 15:53 Instructions: DI for Abdominal Pain-Adult, DI for Colitis Activity Restrictions/Additional Instructions: Thank you for trusting us with your care today. As discussed, your CTs concerning for colitis. I sent 3 prescriptions to [facility] in [place]. You have a paper prescription for your pain medicine. As discussed, please do not drink any alcohol with these antibiotics. As discussed please monitor for tendon pain. I suggest stating a light diet with focus on fluids, progressing to bland foods. Please avoid spicy foods, deep fried fatty foods etcetera. As discussed please come back to the emergency department for any acute concerns such as abdominal pain with fever, inability keep down fluids etcetera I have given you a prescription of a narcotic for pain. Be aware that this can be constipating and sedating. I encouraged taking with a stool softener, pushing fluids and fiber. Do not take and drive, operate heavy machinery, etc. Do not combine it with any other sedating substances such as alcohol. The combination of narcotics and alcohol and/or other sedatives can be lethal. Please be aware that we do not provide refills of controlled substances in the emergency department. Please follow up with her primary care provider. As discussed please follow-up with primary care provider in the next 48-72 hours. Be aware that the ondansetron can be constipating. Prescriptions: New ciprofloxacin HCl [Cipro] 500 mg tablet 500 mg PO BID Qty: 14 RF: 0 metronidazole 500 mg tablet 500 mg PO Q8H 7 Days Qty: 21 RF: 0 ondansetron 4 mg tablet,disintegrating 4 mg PO Q6H PRN (Reason: nausea and vomiting) Qty: 20 RF: 0 hydrocodone-acetaminophen 5-325 mg tablet 1 tab PO Q4-6H PRN (Reason: pain) Qty: 10 RF: 0 No Action [NITROSPRAY] Qty: 0 RF: 0 guaifenesin [Mucinex] 1,200 mg tablet extended release 12hr 1,200 mg PO .QDAY Qty: 30 RF: 0 atorvastatin 40 mg tablet 40 mg PO DAILY Qty: 90 RF: 0 clonazepam [Klonopin] 0.5 mg tablet 0.5 mg PO BID Qty: 180 RF: 0 omeprazole 20 mg capsule,delayed release(DR/EC) 20 mg PO DAILY Qty: 90 RF: 0 pseudoephedrine HCl [Sudafed] 30 mg tablet 30 mg PO TID PRN (Reason: nasal congestion) Qty: 270 RF: 0 tramadol 50 mg tablet 50 mg PO Q6H PRN (Reason: pain) Qty: 30 RF: 0 hydrocodone-acetaminophen 5-325 mg tablet 1 tab PO Q6H PRN (Reason: pain) Qty: 60 RF: 0 tolterodine [Detrol LA] 4 mg capsule,extended release 24hr 4 mg PO QDAY Qty: 90 RF: 3 benzonatate [Tessalon Perles] 100 mg capsule 100 mg PO Q6H PRN (Reason: cough) Qty: 30 RF: 1 albuterol sulfate [Proventil HFA] 90 mcg/actuation HFA aerosol inhaler 2 puff INHALATION Q4HP PRN (Reason: sob) Qty: 1 RF: 5 Referrals: Fei Alvarado MD [Primary Care Provider] - <Qian Kaur MD - Last Filed: 02/16/20 18:11> Cosign ED Attending Cosignature Attestation: I was immediately available in the department for consultation throughout this patient's visit. I agree with documentation as above. Qian Kaur MD
[2020-02-16 11:49] LABS: Add Manual Diff / Slide Review NO; Basophils Absolute Auto 0 /uL (0-100); Basophils Percent Auto 0.4 % (0-2); Eosinophils Absolute Auto 0 /uL (0-450); Eosinophils Percent Auto 0.1 % (2-4); Hematocrit 45.3 % (36-46); Hemoglobin 14.9 g/dL (12.0-16.0); Lymphocytes Absolute Auto 1300 /uL (1100-4500); Lymphocytes Percent Auto 11.3 % (25-40); Mean Corpuscular HGB Conc 32.8 % (30-36); Mean Corpuscular Hemoglobin 30.6 PG (26-34); Mean Corpuscular Volume 93.3 fL (80-100); Monocytes Absolute Auto 300 /uL (0-900); Monocytes Percent Auto 2.9 % (3-14); Neutrophils Absolute Auto 9700 /uL (1500-7000); Neutrophils Percent Auto 85.3 % (50-75); Platelet Count 266 X10^3/uL (150-400); Red Blood Cell Count 4.85 X10^6/uL (4.0-5.2); Red Cell Distribution Width 12.5 % (11.6-14.8); White Blood Cell Count 11.3 X10^3/uL (4.5-11.0)
[2020-02-16 11:55] LABS: Alanine Aminotransferase 27 IU/L (<35); Albumin 4.8 g/dL (3.5-5.0); Albumin Globulin Ratio 1.2 (1.0-2.8); Alkaline Phosphatase 45 U/L (38-126); Amylase 83 U/L (30-110); Aspartate Aminotransferase 27 IU/L (14-36); BUN Creatinine Ratio 31.4 (6-22); Bilirubin Total 0.7 mg/dL (0.2-1.3); Blood Urea Nitrogen 16 mg/dL (7-17); Calcium 9.2 mg/dL (8.4-10.2); Carbon Dioxide 29 mmol/L (22-32); Chloride 102 mmol/L (98-107); Estimated Glomerular Filt Rate > 60.0 mL/min (>60); Globulin 3.9 g/dL (1.7-4.1); Glucose 135 mg/dL (80-110); HEMOLYSIS 28 (0-50); Lactate (Lactic Acid) 0.9 mmol/L (0.7-2.1); Lipase 135 U/L (23-300); Sodium 142 mmol/L (137-145); Total Protein 8.7 g/dL (6.3-8.2)
[2020-02-16] MEDS: SODIUM CHLORIDE 0.9% 1,000 ML 1000 ML IV (11:57)
[2020-02-16] MEDS: ONDANSETRON 4 MG/2 ML INJ IV (11:57)
[2020-02-16 12:33] LABS: Bacteria Urine Few (2-10); Mucus Urine 3+ (Negative); RBC Urine 0-1/HPF (0-5/HPF); Squamous Epithelial Cell Urine 1-5 /HPF (0-5/HPF); WBC Urine 1-5/HPF (0-5/HPF)
[2020-02-16 12:34] LABS: Culture Indicated Urine Cult Not Indicated
[2020-02-16] MEDS: KETOROLAC 60 MG/2 ML VIAL 30 MG IV (14:16)
[2020-02-16] MEDS: CEFTRIAXONE 2 GM/50 ML FROZ.PIGGY IV (14:17)
[2020-02-16] MEDS: metroNIDAZOLE 250 MG TABLET 500 MG PO (15:25)
[2020-02-16] MEDS: CIPROFLOXACIN 500 MG TABLET PO (15:25)
== END 2020-02-16 15:53 | disposition home or self-care (01) ==
PROVIDERS: Emergency Provider Nurse Practitioner Family; PCP Family Medicine
DX: K52.9 Noninfective gastroenteritis and colitis, unspecified (principal)
CPT/HCPCS: 36415; 74177; 80053; 81003; 81015; 82150; 83605; 83690; 85025; 93005; 96361; 96365; 96375; 99284; J0696; J1885; J2405; Q9967

== ENCOUNTER → 2020-04-04 09:01 | Outpatient (CLI) | payer OTHER, SELFPAY ==
[2020-04-04 10:46] LABS: COVID19 -Nasal RAPID Negative (Negative)
== END ==
PROVIDERS: PCP Family Medicine; Visit Provider Surgery
DX: Z11.59 Encounter for screening for other viral diseases (principal)
CPT/HCPCS: 87635; C9803

== ENCOUNTER 2020-04-05 07:14 | Day surgery (SDC) | payer OTHER, SELFPAY ==
[2020-04-05] VITALS (7 sets, daily range): BP systolic 106–119; BP diastolic 64–88; PULSE 62–80; RESP 11–17; TEMP 35.9–36.7; O2SAT 95–98
--- NOTE | 2020-04-05 | PATH_ITS ---
[facility] Accession Number: [id number] . 01 Material submitted: . ileum - DISTAL ILEUM . 01 Clinical history: . SCREENING COLONOSCOPY . 02 Diagnosis: Distal Ileum, Biopsy: Small bowel mucosa with no diagnostic abnormality. Negative for active inflammation, dysplasia and malignancy. MRV 04/09/2020 1323 Local . 02 Electronically signed: . Maureen Vuong MD, Pathologist NPI- [id number] . 01 Gross description: . The specimen is received in formalin, labeled distal ileum, and consists of three singer fragments of soft tissue measuring 0.5 x 0.4 x 0.2 cm in aggregate. The specimen is entirely submitted in cassette A1. ([id number]) /FRR 04/06/2020 1739 Local . 02 Pathologist provided ICD-10: Z12.11 . 02 CPT . 351612 Performed at: 01 [facility] [address] [facility], [place], [place] [id number] MD Avtar Alcaraz MD Phone: [phone] Performed at: 02 [facility] [address] [place], [place] [id number] MD Maureen Vuong MD Phone: [phone]
[2020-04-05] MEDS: SODIUM CHLORIDE 0.9% 1,000 ML 200 ML IV (07:49)
--- NOTE | 2020-04-05 08:21 | P.HP_ITS ---
History of Present Illness History of Present Illness Date Patient Seen: 04/05/20 Time Patient Seen: 08:21 Chief complaint: SCREENING COLONOSCOPY Narrative: This is a 58-year-old woman with history of colonoscopy in 2008, which was reportedly normal. About 2 months ago she had an episode of right lower quadrant abdominal pain, and a CT scan which was indicative of a possible enteritis or colitis. She says that her symptoms have resolved since then, although she occasionally has some right lower quadrant pain. She denies any melena, hematochezia, or unexplained weight loss. She denies any personal family history of colon polyps or colon cancers ROS As per HPI, Thirteen system review is otherwise negative other than as mentioned below and in HPI. PE: GENERAL: Well groomed and cooperative. Appears stated age. Answers questions promptly and appropriately. Vital signs noted. HENT: Normocephalic, atraumatic. Hearing intact. EYES: Conjunctiva pink, sclera white, no periorbital swelling. CARDIOVASCULAR: Regular rate. No pedal edema. RESPIRATORY: Non-tachypneic, breathing comfortably on room air. GASTROINTESTINAL: Abdomen soft and non-distended; mild tenderness to palpation in the right lower quadrant on deep palpation GENITALURINARY: No flank tenderness. MUSCULOSKELETAL: Equal tone and mass bilaterally. SKIN: Warm, dry, soft, appropriate color for ethnicity. No other lesions, rashes, or wounds. NEURO: Alert and Oriented X 3. No gross sensory deficits, or cognitive issues. PSYCH: Appropriate affect and mood. Patient History Medical History Chest pain (Chronic) Gastric ulcer (Chronic 02/2009) Hyperlipidemia (Chronic) Tuberculosis (Resolved) Surgical History Anesthesia (Resolved) History of bladder suspension procedure (Resolved 1999) S/P total abdominal hysterectomy and bilateral salpingo-oophorectomy (Resolved 1999) Family & Social History Family History Father Hypertension Mother Heart disease Hypertension CVA (cerebral vascular accident) Cataract Glaucoma Family/Other CVA (cerebral vascular accident) Social History: household members spouse Tobacco & Substance use: Smoking Status Never smoker alcohol intake frequency holiday/special occasion Substance Use Type does not use Meds Home Medications and Allergies Home Medications Medication Instructions Recorded Confirmed Type [NITROSPRAY] #0 12/12/10 02/28/20 History hydrocodone 5 mg-acetaminophen 325 1 tab PO Q6H PRN #60 tab 02/14/19 02/28/20 Rx mg tablet albuterol sulfate 90 mcg/actuation 2 puff INHALATION Q4HP PRN #1 inh 07/04/19 04/05/20 Rx aerosol inhaler clonazepam 0.5 mg tablet 0.5 mg PO BID #180 tab 01/30/20 02/28/20 Rx atorvastatin 40 mg tablet 40 mg PO DAILY #90 tab 03/04/20 04/05/20 Rx omeprazole 20 mg capsule,delayed 20 mg PO DAILY #90 tab 03/04/20 04/05/20 Rx release tramadol 50 mg tablet 50 mg PO Q6H PRN #8 tab 03/13/20 04/05/20 Rx Allergies Allergy/AdvReac Type Severity Reaction Status Date / Time No Known Drug Allergies Allergy Verified 04/05/20 07:41 Exam Vital Signs (past 8 hours): - 04/05/20 07:44 Temperature 97.5 F L Pulse Rate 80 Respiratory Rate 16 Blood Pressure 106/66 Pulse Oximetry 98 Oxygen Delivery Method Room Air Objective Imaging CT scan - abdomen: Radiologist's impression: [place] [address] CT Scan Report Signed Patient: Rosario Brown EMR#: [id number] : 8Acct:[id number] Age/Sex: 60 / FDate of Service: 02/16/20 Loc: ED Accession Number: [id number] Procedure: CT abdomen pelvis w con Ordering Provider: Azra Cao [facility]- PROCEDURE: CT ABDOMEN PELVIS W CON INDICATIONS: Right lower quadrant abdominal pain TECHNIQUE: After the administration of intravenous contrast, 5 mm thick sections acquired from the diaphragm to the symphysis. 5 mm coronal and sagittal reformats were acquired. For radiation dose reduction, the following was used: automated exposure control, adjustment of mA and/or kV according to patient size. COMPARISON: None. FINDINGS: Image quality: Excellent. ABDOMEN: Lung bases: Lung bases are clear. Heart size is normal. Solid organs: Liver is normal in size and enhancement. Gallbladder is unremarkable. Biliary system is non dilated. Pancreas enhances normally. Spleen is normal in size and enhancement. No adrenal nodules. Kidneys demonstrate normal size and enhancement, without hydronephrosis. Peritoneum and bowel: There is circumferential wall thickening and pericolonic inflammation surrounding the ascending colon as well as a moderate segment of distal ileum. There is associated distention of fluid filled bowel involving the distal ileum measuring up to 2.6 cm in diameter. Mild fecalization suggests delayed transit. No transition point is visualized. The appendix is prominent measuring 7 mm in diameter. There is mild periappendiceal inflammatory stranding and tiny appendicolith. No free air. There is scattered reactive free fluid in the abdomen. Nodes and vessels: No retroperitoneal or mesenteric adenopathy by size criteria. Aorta and inferior vena cava are normal in size. Miscellaneous: Small fat containing umbilical hernia without acute inflammation. No ventral hernias. PELVIS: Genitourinary: Bladder wall thickness is normal. Prominent nabothian cyst is visualized. Miscellaneous: No inguinal hernias or adenopathy. Bones: No suspicious bony lesions. No acute vertebral body compression fractures. IMPRESSION: 1. Mild wall thickening and surrounding inflammatory changes involving a long segment of distal ileum and the ascending colon. There is mild distention of the affected segments with fecalization suggesting delayed transit. No evidence for high-grade obstruction identified. Findings are nonspecific and may represent sequela of inflammatory/infectious colitis/enteritis versus early partial bowel obstruction. Additionally, the appendix is mildly dilated with associated periappendiceal stranding. Acute appendicitis may have a similar appearance although this may represent reactive changes secondary to adjacent inflammation. Recommend continued clinical and imaging surveillance and possible surgical consultation as indicated. 2. Other nonacute findings as above. Dictated by: Heath Cavazos M.D. on 02/16/2020 at 12:41 Approved by: Heath Cavazos M.D. on 02/16/2020 at 12:54 Assessment & Plan Assessment and plan (1) Enteritis: Status: Acute (2) Abnormal CT scan: Status: Acute Assessment & Plan narrative: Risks and benefits of screening colonoscopy and possible polypectomy were discussed with the patient including risk of bleeding, perforation, need for additional procedures, risks of anesthesia. The patient desires to proceed with the colonoscopy procedure. COVID-19 COVID-19 status: Negative Result date/Date tested (Pos, Neg/Pending): 04/04/20 Time Spent With Patient Time with patient: 15-24 minutes Quality VTE Deep Vein Thrombosis/Pulmonary Embolism Present on Admission: No
[2020-04-05] MEDS: MIDAZOLAM 5 MG/5 ML VIAL IV ×2 (08:24)
[2020-04-05] MEDS: fentaNYL 250 MCG/5 ML INJ IV (08:24)
--- NOTE | 2020-04-05 08:37 | PM.OP.ENDO ---
Operative Date/Time/Diagnoses Date of procedure: 04/05/20 Time of procedure: 08:37 Pre-op diagnosis: Average risk for colon cancer, recent enteritis Post-op diagnosis: other (Normal appearing colon and distal 1/3 of ileum) Procedure & Clinicians Study performed: Colonoscopy to distal ileum Procedural sedation performed by the endoscopist Cold forceps biopsies of distal ileum Indications: History of colonoscopy over 10 years ago, recent enteritis/colitis Surgeon: Bailey Mitchell Procedure Notes SCOAP/Timeout: Performed Procedure in detail: The patient was brought to the room and placed in left lateral decubitus position with all bony prominences padded. A time-out was performed and then the patient was given procedural sedation starting with 2 mg of Versed and 100 mcg of fentanyl. A total of 4 mg of Versed and 200 micro g of fentanyl were given for the entire procedure. Vitals were monitored throughout the procedure and remained stable. Once adequately sedated, the procedure was begun. A rectal exam was performed revealing no abnormalities. The colonoscope was then introduced to the rectum and advanced to the cecum in the usual fashion. Colon was very tortuous. We had to change to a pediatric scope, maneuver the patient onto her back, and use a scope stiffener in order to safely reach the cecum. The cecum was identified by the appendiceal orifice, the mucosal tri-fold, and the ileocecal valve. The terminal ileum was intubated, and was traversed for about 35 cm. The terminal ileum looked entirely normal. Biopsies were taken to rule out microscopic enteritis, and IBD. The scope was then retracted while rotating side to side and examining each mucosal fold. The colon looked entirely normal. No polyps or masses were seen At the conclusion of the procedure retroflexion was performed and small grade 1-2 internal hemorrhoids without stigmata of bleeding were seen. The scope was then withdrawn from the rectum the procedure was concluded. The patient tolerated the procedure well and was transferred to the PACU in stable condition. Scope withdrawal time: 8 Sedation minutes: 31 Specimen(s): other (Biopsy of distal ileum) Complications: none Impression: Normal appearing colon, normal appearing small intestine Post-procedure Recommendations: Colonscopy in 10 years (If biopsy results are normal) Follow up: as needed Disposition: PACU
== END 2020-04-05 10:34 | disposition home or self-care (01) ==
PROVIDERS: PCP Family Medicine; Referring Provider Family Medicine; Visit Provider Surgery
PROC: 0DJD8ZZ Inspection of Lower Intestinal Tract, Via Natural or Artificial Opening Endoscopic (ICD-10-PCS; CPT 45378; principal; 2020-04-05 08:30)
DX: Z12.11 Encounter for screening for malignant neoplasm of colon (principal); E78.5 Hyperlipidemia, unspecified; K64.0 First degree hemorrhoids
CPT/HCPCS: 45380; 99152; 99153; J2250; J3010

== ENCOUNTER → 2020-07-09 17:06 | Outpatient (CLI) | payer OTHER, SELFPAY ==
[2020-07-09 17:41] LABS: Appearance Urine UA CLEAR; Bilirubin Urine UA NEGATIVE (NEGATIVE); Color Urine UA YELLOW; Glucose Urine UA NEGATIVE (Negative); Ketones Urine UA TRACE (NEGATIVE); Leukocyte Esterase Urine UA NEGATIVE (NEGATIVE); Nitrite Urine UA NEGATIVE (Negative); Occult Blood Urine UA TRACE-INTACT (Negative); Protein Urine UA NEGATIVE (Negative); Urobilinogen Urine UA 0.2 E.U./dL (0.2)
[2020-07-09 17:52] LABS: Amorphous Sediment Urine 1+; Bacteria Urine Occasional (0-1); RBC Urine 0-1/HPF (0-5/HPF); Squamous Epithelial Cell Urine 0-1 /HPF (0-5/HPF); WBC Urine 1-5/HPF (0-5/HPF)
[2020-07-09 17:53] LABS: Culture Indicated Urine Cult Not Indicated; Mucus Urine 1+ (Negative)
== END ==
PROVIDERS: PCP Family Medicine; Referring Provider Family Medicine; Visit Provider Family Medicine
DX: R39.15 Urgency of urination (principal)
CPT/HCPCS: 81001

== ENCOUNTER → 2021-02-19 16:56 | Outpatient (CLI) | payer OTHER, SELFPAY ==
--- NOTE | 2021-02-19 16:58 | DI.RAD.S_ITS ---
PROCEDURE: XR CHEST 2V INDICATIONS: Progressive cough TECHNIQUE: 2 views of the chest were acquired. COMPARISON: [facility], CR, XR CHEST 2V, 01/13/2018, 17:21. [facility], CR, XR CHEST 2V, 06/30/2019, 15:52. FINDINGS: Surgical changes and devices: None. Lungs and pleura: Left apical pleural-parenchymal scarring with left lung volume loss stable compared to prior exams. No pleural effusions or pneumothorax. Mediastinum: Mediastinal contours are normal. Heart size is normal. Bones and chest wall: No suspicious bony abnormalities. Soft tissues appear unremarkable. IMPRESSION: No acute cardiopulmonary disease process. Dictated by: Elisabeth Ron MD, PhD on 02/20/2021 at 8:55 Approved by: Elisabeth Ron MD, PhD on 02/20/2021 at 8:56
== END ==
PROVIDERS: PCP Family Medicine; Referring Provider Family Medicine; Visit Provider Family Medicine
DX: R05 Cough (principal)
CPT/HCPCS: 71046

== ENCOUNTER → 2022-06-18 16:55 | Outpatient (CLI) | payer OTHER, SELFPAY ==
--- NOTE | 2022-06-18 16:58 | DI.RAD.S_ITS ---
PROCEDURE: XR CHEST 2V INDICATIONS: Progressive exertional fatigue TECHNIQUE: 2 views of the chest were acquired. COMPARISON: [facility], CR, XR CHEST 2V, 02/19/2021, 16:56. FINDINGS: Surgical changes and devices: None. Lungs and pleura: Lungs are clear. No pleural effusions or pneumothorax. Mediastinum: Mediastinal contours are normal. Heart size is mildly prominent. Bones and chest wall: No suspicious bony abnormalities. Soft tissues appear unremarkable. IMPRESSION: No acute pulmonary process. Dictated by: Charu Hinds M.D. on 06/19/2022 at 11:54 Approved by: Charu Hinds M.D. on 06/19/2022 at 11:55
[2022-06-18 18:18] LABS: Cholesterol 167 mg/dL (140-199); HDL Cholesterol 38 mg/dL (40-60); LDL Cholesterol Calculated 95 mg/dL (<100); Triglycerides 168 mg/dL (35-150)
== END ==
PROVIDERS: PCP Family Medicine; Referring Provider Family Medicine; Visit Provider Family Medicine
DX: E78.2 Mixed hyperlipidemia (principal); R53.83 Other fatigue; R63.4 Abnormal weight loss; Z92.89 Personal history of other medical treatment; R05.9 Cough, unspecified
CPT/HCPCS: 36415; 71046; 80061

== ENCOUNTER → 2022-07-30 15:11 | Outpatient (CLI) | payer OTHER, SELFPAY ==
[2022-07-30 16:39] LABS: Add Manual Diff / Slide Review NO; Basophils Absolute Auto 0 /uL (0-100); Basophils Percent Auto 0.7 % (0-2); Eosinophils Absolute Auto 100 /uL (0-450); Eosinophils Percent Auto 1.9 % (2-4); Hematocrit 39.4 % (36-46); Hemoglobin 12.8 g/dL (12.0-16.0); Lymphocytes Absolute Auto 1700 /uL (1100-4500); Lymphocytes Percent Auto 41.3 % (25-40); Mean Corpuscular HGB Conc 32.4 % (30-36); Mean Corpuscular Volume 92.6 fL (80-100); Monocytes Absolute Auto 400 /uL (0-900); Monocytes Percent Auto 8.6 % (3-14); Neutrophils Absolute Auto 2000 /uL (1500-7000); Neutrophils Percent Auto 47.5 % (50-75); Platelet Count 261 X10^3/uL (150-400); Red Blood Cell Count 4.25 X10^6/uL (4.0-5.2); White Blood Cell Count 4.2 X10^3/uL (4.5-11.0)
[2022-07-30 17:00] LABS: Cholesterol 137 mg/dL (140-199); HDL Cholesterol 46 mg/dL (40-60); LDL Cholesterol Calculated 71 mg/dL (<100); Triglycerides 99 mg/dL (35-150)
[2022-07-30 17:29] LABS: TSH w/ Reflex to FT4 1.82 uIU/mL (0.47-4.68)
--- NOTE | 2022-07-31 02:24 | DI.NM.S_ITS ---
DATE OF SERVICE: 07/30/2022 PROCEDURE PERFORMED: Exercise treadmill stress test without imaging. ORDERING PROVIDER: Aamir Luong DO. INDICATIONS: The patient is a 62-year-old female with exertional fatigue, exercise intolerance, and cough with dyspnea. FINDINGS: 1. The patient was able to exercise for only 3 minutes, 12 seconds on a standard Stefano protocol suggesting severely reduced exercise capacity with an DAHLIA of +50%, achieving 4.6 METs, stopping due to lightheadedness and dyspnea. 2. She had a blunted heart rate response to exercise, with a resting heart rate of 88 BPM, increasing to a maximum of 119 BPM (76% of her predicted maximum), reducing the sensitivity of this study to detect coronary disease. She had a normal blood pressure response but her oxygen saturation fell from 95% at rest down to 84% at peak exercise. 3. She had no chest discomfort or anginal symptoms although reported exertional lightheadedness. 4. Resting ECG shows sinus rhythm with normal ST segments. With stress, there are no significant ST-segment shifts or arrhythmias. IMPRESSION: 1. Normal exercise treadmill study for ischemia although with reduced sensitivity because of a blunted heart rate response to exercise. 2. Severely reduced exercise capacity with provokable lightheadedness and exertional oxygen desaturation down to 84%, suggestive of intrinsic lung disease. 3. No angina or arrhythmias with stress. Rosario Brown - BETSY/inocencio/liu doc#: [id number]/job#: [id number] dd: 07/30/2022 17:01:00 dt: 07/31/2022 02:16:00 DICTATING MD/COPIES TO: Alvin Gonzalez MD; Aamir Luong DO COPIES MNE: CHRISTA
== END ==
PROVIDERS: PCP Family Medicine; Referring Provider Family Medicine; Visit Provider Family Medicine
DX: R53.83 Other fatigue (principal); R05.9 Cough, unspecified; R06.00 Dyspnea, unspecified; R63.4 Abnormal weight loss; E78.2 Mixed hyperlipidemia; K52.9 Noninfective gastroenteritis and colitis, unspecified; Z92.89 Personal history of other medical treatment
CPT/HCPCS: 36415; 80061; 84443; 85025; 93017

== ENCOUNTER → 2025-03-06 13:47 | Outpatient (CLI) | payer MEDICARE, OTHER, SELFPAY ==
[2025-03-06 14:37] LABS: Influenza A - CEPHEID Flu A NEGATIVE (NEGATIVE); Influenza B - CEPHEID Flu B NEGATIVE (NEGATIVE)
[2025-03-06 14:39] LABS: COVID-19 CEPHEID 4-PLEX PCR Negative (Negative)
== END ==
PROVIDERS: PCP Family Medicine; Visit Provider Physician Assistant
DX: R06.2 Wheezing (principal); R42 Dizziness and giddiness; J06.9 Acute upper respiratory infection, unspecified; R05.8 Other specified cough
CPT/HCPCS: 87637